=== PATIENT | male | born 1950 | race Caucasian/White ===

== ENCOUNTER 2016-07-03 22:11 | Emergency (ER) | payer OTHER ==
[2016-07-03 22:25] VITALS: PULSE 93; TEMP 97.7; BMI 30.1
--- NOTE | 2016-07-03 23:19 | PDOC ---
History of Present Illness - General History Source: Patient Exam Limitations: No Limitations - History of Present Illness Initial Comments: 07/03/16 23:39 The patient is a 65 year old male, with a significant past medical history of HTN, hyperlipidemia and BPH, who presents to the emergency department with bilateral lower extremity edema since approximately 9PM this evening. The patient states that he was watching TV this evening when he first noticed the lower extremity edema. The patient additionally reports feeling lightheaded this evening. The patient states that over the past couple of weeks, he has been experiencing increased urinary frequency due to his BPH. However, today he reports dysuria. The patient denies palpitations, shortness of breath or chest pain. The patient denies fever, chills, nausea, vomiting, diarrhea, constipation or hematuria. Patient states that he has an appointment with his PCP for an annual physical the beginning of July. Allergies: None reported. Past Surgical History: None reported. Social History: Non smoker. Reports occasional alcohol use on weekends. Denies drug use. PCP: Dr. Verma <Meliza Costa - Last Filed: 07/03/16 23:38> <David Barnes - Last Filed: 07/04/16 01:50> - General Chief Complaint: Edema Stated Complaint: SWOLLEN LEGS Time Seen by Provider: 07/03/16 22:58 Past History <Meliza Costa - Last Filed: 07/03/16 23:38> - Past Medical History HTN: Yes Hypercholesterolemia: Yes - Psycho/Social/Smoking Cessation Hx Suicidal Ideation: No Smoking History: Never smoked <David Barnes - Last Filed: 07/04/16 01:50> - Past Medical History Allergies/Adverse Reactions: Allergies Allergy/AdvReac Type Severity Reaction Status Date / Time No Known Allergies Allergy Verified 07/03/16 22:20 Home Medications: Ambulatory Orders Amlodipine Besylate [Norvasc -] 10 mg PO DAILY 07/03/16 Simvastatin [Zocor -] 40 mg PO HS 07/03/16 Ciprofloxacin [Cipro (Restricted To Id)] 500 mg PO Q12H #28 tablet 07/04/16 Review of Systems - Review of Systems Able to Perform ROS?: Yes Comments:: 07/03/16 23:40 CONSTITUTIONAL: No fever, no chills, no fatigue EYES: No visual changes ENT: No ear pain, no sore throat CARDIOVASCULAR: +Lightheadedness. No chest pain, no palpitations RESPIRATORY: No cough, no SOB GI: No abdominal pain, no nausea, no vomiting, no constipation, no diarrhea GENITOURINARY: +Dysuria, frequency. No hematuria MUSKULOSKELETAL: No back pain, no joint pain, no myalgias SKIN: +Bilateral lower extremity edema. No rash NEURO: No headache <Meliza Costa - Last Filed: 07/03/16 23:38> *Physical Exam - Vital Signs Last Vital Signs Temp Pulse Resp BP Pulse Ox 97.7 F 93 H 20 147/76 97 07/03/16 22:23 07/03/16 22:23 07/03/16 22:23 07/03/16 22:23 07/03/16 22:23 - Physical Exam Comments: 07/03/16 23:40 CONSTITUTIONAL: Well-appearing; well-nourished; in no apparent distress. HEAD: Normocephalic; atraumatic. EYES: PERRL; EOM intact. ENMT: External appears normal; normal oropharynx. NECK: Supple; non-tender; no cervical lymphadenopathy. CARD: Normal S1, S2; no murmurs, rubs, or gallops. RESP: Normal chest excursion with respiration; breath sounds clear and equal bilaterally; no wheezes, rhonchi, or rales. ABD: Soft, non-distended; non-tender; no palpable organomegaly, no palpable hernias. EXT: Normal ROM in all four extremities; non-tender to palpation; distal pulses intact. SKIN: 4+ pitting edema of the bilateral lower extremities. Warm, dry, no rash. NEURO: No focal neurological deficiencies. Gait is normal. <Meliza Costa - Last Filed: 07/03/16 23:38> - Vital Signs Last Vital Signs Temp Pulse Resp BP Pulse Ox 97.7 F 93 H 20 147/76 97 07/03/16 22:23 07/03/16 22:23 07/03/16 22:23 07/03/16 22:23 07/03/16 22:23 <David Barnes - Last Filed: 07/04/16 01:50> ED Treatment Course - LABORATORY CBC & Chemistry Diagram: 07/04/16 00:40 07/04/16 00:40 <David Barnes - Last Filed: 07/04/16 01:50> Medical Decision Making - Medical Decision Making 07/04/16 01:46 Patient is an anxious appearing 65-year-old male who presents with bilateral lower extremity swelling, increased urinary frequency and dysuria. In the ER, patient is awake and alert, hemodynamically stable with bilateral lower extremity edema likely related to initiation of amlodipine therapy. CBC/CMP within normal limit. Lungs are clear. saturations noted to be 98% room air. UA is within normal limit however given the patient's symptomatology, prostatitis cannot be ruled out..Culture has been obtained. Will discharge with Cipro for 14 days twice a day with neurology follow-up. <David Barnes - Last Filed: 07/04/16 01:50> *DC/Admit/Observation/Transfer - Attestations Scribe Attestion: 07/03/16 23:27 Documentation prepared by Meliza Costa, acting as director global medical affairs for David Barnes MD. <Meliza Costa - Last Filed: 07/03/16 23:38> - Attestations Physician Attestion: 07/04/16 01:42 The documentation was prepared by the scribe under my direct supervision. I have reviewed the documentation which correctly represents the findings, medical decision-making and critical action taken by me. <David Barnes - Last Filed: 07/04/16 01:50> Diagnosis at time of Disposition: Leg edema Qualifiers: Laterality: bilateral Qualified Code(s): R60.0 - Localized edema Prostatitis Qualifiers: Prostatitis type: acute Qualified Code(s): N41.0 - Acute prostatitis - Discharge Dispostion Disposition: HOME Condition at time of disposition: Stable - Referrals Referrals: Mickey Verma MD [Primary Care Provider] - - Patient Instructions Printed Discharge Instructions: DI for Peripheral Edema -- Bilateral, DI for Acute Prostatitis Additional Instructions: Follow with to possibly change anti hypertensive medication. Return to Emergency dept for any shortness of breath, pain, fever, or any other concerns.
[2016-07-04 00:39] LABS: URINE APPEARANCE CLEAR; URINE BILIRUBIN NEGATIVE (NEGATIVE); URINE BLOOD NEGATIVE (NEGATIVE); URINE COLOR LTYELLOW; URINE GLUCOSE (UA) NEGATIVE (NEGATIVE); URINE KETONE NEGATIVE (NEGATIVE); URINE LEUK ESTERASE NEGATIVE (NEGATIVE); URINE NITRITE NEGATIVE (NEGATIVE); URINE PROTEIN NEGATIVE (NEGATIVE); URINE UROBILINOGEN NEGATIVE E.U./dl (0.2-1.0)
[2016-07-04 00:51] LABS: EOSINOPHIL 3.9 % (0-4.5); MCH 30.9 pg (25.7-33.7); MEAN PLT VOLUME 7.7 fl (7.5-11.1); NEUTROPHILS 60.1 % (42.8-82.8); PLATELET COUNT 280 K/MM3 (134-434); RDW 13.6 % (11.9-15.9); WHITE BLOOD COUNT 10.4 K/mm3 (4.0-10.0)
[2016-07-04 01:14] LABS: ALBUMIN 3.9 g/dl (3.4-5.0); ALK PHOS 59 U/L (45-117); ANION GAP 10 (8-16); BILIRUBIN,TOTAL 0.3 mg/dL (0.2-1.0); CALCIUM 9.2 mg/dL (8.5-10.1); CO2 27 mmol/L (21-32); GLUCOSE,RANDOM 103 mg/dL (74-106); SGOT/AST 14 U/L (15-37); SGPT/ALT 27 U/L (12-78); TOT PROT 7.2 g/dl (6.4-8.2)
[2016-07-04 01:33] VITALS: BP 140/80
== END 2016-07-04 02:00 | disposition home or self-care (01) ==
LOC: JER 22:11 → SUPCPDRO 22:11 → JER 07-04 02:00
DX: R60.0 Localized edema (principal); N41.0 Acute prostatitis; I10 Essential (primary) hypertension; E78.00 Pure hypercholesterolemia, unspecified
CPT/HCPCS: 36415; 80053; 81003; 85025; 87086; 99281-25